=== PATIENT | male | born 1945 | race Asian ===

== ENCOUNTER 2017-05-21 11:51 | Observation (INO) | payer MEDICARE, OTHER ==
[2017-05-21] MEDS: morphine 4 MG/ML VIAL IV (13:05)
[2017-05-21] MEDS: ONDANSETRON 4 MG INJ IV (13:06)
[2017-05-21] MEDS: NITROGLYCERIN 2% 1 GM OINT PKT TD (13:08)
[2017-05-21] MEDS: ASPIRIN 325 MG TAB PO (13:08)
[2017-05-21 13:18] LABS: ADD MAN DIFF? NO
[2017-05-21 13:21] LABS: WHITE BLOOD COUNT 6.4 10^3/ul (4.8-10.8)
[2017-05-21 13:21] LABS: BASOPHILS % 0.5 % (0.0-2.0); EOSINOPHILS % 0.6 % (0.0-7.0); HEMATOCRIT 42.8 % (42.0-52.0); HEMOGLOBIN 14.9 g/dl (14.0-18.0); LYMPHOCYTES # 1.8 10^3/ul (0.8-2.9); LYMPHOCYTES % 28.7 % (15.0-51.0); MEAN CORPUSCULAR HEMOGLOBIN 29.5 pg (29.0-33.0); MEAN CORPUSCULAR HGB CONC 34.8 g/dl (32.0-37.0); MEAN CORPUSCULAR VOLUME 84.8 fl (82.0-101.0); MEAN PLATELET VOLUME 10.2 fl (7.4-10.4); MONOCYTE # 0.5 10^3/ul (0.3-0.9); MONOCYTES % 7.6 % (0.0-11.0); NEUTROPHILS % 62.1 % (39.0-77.0); PLATELET COUNT 213 10^3/UL (140-415); RED BLOOD COUNT 5.05 10^6/ul (4.70-6.10); RED CELL DISTRIBUTION WIDTH 13.4 % (11.5-14.5)
[2017-05-21 13:40] LABS: INR 0.99; PROTIME 13.2 Sec (11.9-14.9)
[2017-05-21 13:41] LABS: PARTIAL THROMBOPLASTIN TIME 27.5 Sec (25.0-35.0)
[2017-05-21 13:43] LABS: ANION GAP 14 (8-16); BLOOD UREA NITROGEN 25 mg/dl (7-20); CALCIUM 9.8 mg/dl (8.4-10.2); CARBON DIOXIDE 20 mmol/L (21-31); CHLORIDE 107 mmol/L (97-110); CREATININE 0.74 mg/dl (0.61-1.24); GLUCOSE 150 mg/dl (70-220); POTASSIUM 4.3 mmol/L (3.5-5.1); SODIUM 137 mmol/L (135-144)
[2017-05-21 13:57] LABS: TROPONIN-I < 0.012 ng/ml (0.00-0.12)
[2017-05-21] MEDS ORDERED: ONDANSETRON 4 MG INJ IV (16:00)
[2017-05-21] MEDS: SOD CHLORIDE 0.9% 1,000 ML IV (16:13)
[2017-05-21 17:59] LABS: HEMOGLOBIN A1C 7.7 % (0-5.9)
[2017-05-21] MEDS ORDERED: GLUCAGON 1 MG INJ IM (19:00)
[2017-05-21] MEDS ORDERED: GLUCOSE GEL 15 GRAM TUBE BUCCAL (19:00)
[2017-05-21] MEDS ORDERED: DEXTROSE 50% 50 ML SYRINGE IV ×2 (19:00)
[2017-05-21] MEDS ORDERED: GLUCOSE GEL 15 GRAM TUBE PO ×2 (19:00)
[2017-05-21] MEDS: FAMOTIDINE 20 MG TAB PO (22:46)
[2017-05-21] MEDS: RANOLAZINE (SR) 500 MG TAB PO (22:46)
[2017-05-21] MEDS: ATORVASTATIN 40 MG TAB PO (22:46)
[2017-05-21] MEDS: INSULIN ASPART [NOVOLOG] 3 ML PEN SC (22:50)
[2017-05-21 22:54] LABS: CREATINE KINASE 38 IU/L (23-200)
[2017-05-21 23:07] LABS: CK INDEX 1.9
[2017-05-21 23:15] LABS: CK-MB 0.72 ng/ml (0.0-2.4); TROPONIN-I < 0.012 ng/ml (0.00-0.12)
[2017-05-22] MEDS: ACCU-CHEK XX (02:00)
[2017-05-22] MEDS: ACETAMINOPHEN 325 MG TAB PO (04:53)
[2017-05-22 05:41] LABS: ADD MAN DIFF? NO
[2017-05-22 06:06] LABS: BASOPHILS % 0.6 % (0.0-2.0); EOSINOPHILS # 0.1 10^3/ul (0.0-0.5); EOSINOPHILS % 2.4 % (0.0-7.0); HEMATOCRIT 37.6 % (42.0-52.0); LYMPHOCYTES # 1.6 10^3/ul (0.8-2.9); LYMPHOCYTES % 46.1 % (15.0-51.0); MEAN CORPUSCULAR HEMOGLOBIN 29.6 pg (29.0-33.0); MEAN CORPUSCULAR HGB CONC 34.6 g/dl (32.0-37.0); MEAN CORPUSCULAR VOLUME 85.6 fl (82.0-101.0); MEAN PLATELET VOLUME 10.5 fl (7.4-10.4); MONOCYTE # 0.3 10^3/ul (0.3-0.9); MONOCYTES % 9.2 % (0.0-11.0); NEUTROPHIL # 1.4 10^3/ul (1.6-7.5); NEUTROPHILS % 41.4 % (39.0-77.0); PLATELET COUNT 172 10^3/UL (140-415); RED BLOOD COUNT 4.39 10^6/ul (4.70-6.10); RED CELL DISTRIBUTION WIDTH 13.5 % (11.5-14.5)
[2017-05-22 06:06] LABS: WHITE BLOOD COUNT 3.4 10^3/ul (4.8-10.8)
[2017-05-22 06:20] LABS: ALANINE AMINOTRANSFERASE 29 IU/L (13-69); ALBUMIN 3.4 g/dl (3.3-4.9); ALBUMIN/GLOBULIN RATIO 1.25; ALKALINE PHOSPHATASE 69 IU/L (42-121); ANION GAP 13 (8-16); ASPARTATE AMINO TRANSFERASE 17 IU/L (15-46); BILIRUBIN,INDIRECT 0.3 mg/dl (0-1.1); BILIRUBIN,TOTAL 0.3 mg/dl (0.2-1.3); BLOOD UREA NITROGEN 26 mg/dl (7-20); CALCIUM 9.1 mg/dl (8.4-10.2); CARBON DIOXIDE 22 mmol/L (21-31); CHLORIDE 108 mmol/L (97-110); CHOL/HDL RATIO 3.6 RATIO; CHOLESTEROL 110 mg/dl (100-200); CREATININE 0.68 mg/dl (0.61-1.24); GLUCOSE 164 mg/dl (70-220); HDL CHOLESTEROL 30 mg/dl (31-75); LDL CHOLESTEROL,CALCULATED 58 mg/dl; POTASSIUM 4.2 mmol/L (3.5-5.1); SODIUM 139 mmol/L (135-144); TOTAL PROTEIN 6.1 g/dl (6.1-8.1); TRIGLYCERIDES 112 mg/dl (0-149)
[2017-05-22 06:23] LABS: B-TYPE NATRIURETIC PEPTIDE 69 PG/ML (0-125)
[2017-05-22 06:29] LABS: FREE T4 (FREE THYROXINE) 0.86 ng/dl (0.78-2.44)
[2017-05-22 06:43] LABS: CREATINE KINASE 34 IU/L (23-200)
[2017-05-22 06:55] LABS: CK-MB 0.68 ng/ml (0.0-2.4); TROPONIN-I < 0.012 ng/ml (0.00-0.12)
[2017-05-22 07:47] LABS: MAGNESIUM 1.8 mg/dl (1.7-2.5)
[2017-05-22] MEDS: REGADENOSON 0.4 MG/5 ML SYG (08:53)
[2017-05-22] MEDS: INSULIN ASPART [NOVOLOG] 3 ML PEN SC ×4 (10:18→21:00)
[2017-05-22] MEDS: RANOLAZINE (SR) 500 MG TAB PO ×2 (10:21→21:30)
[2017-05-22] MEDS: LINAGLIPTIN 5 MG TABLET PO (10:22)
[2017-05-22] MEDS: CLOPIDOGREL 75 MG TAB PO (10:23)
[2017-05-22] MEDS: VALSARTAN 80 MG TAB PO (10:24)
[2017-05-22] MEDS: METOPROLOL (XL) 25 MG TAB PO (10:25)
[2017-05-22] MEDS: DUTASTERIDE 0.5 MG CAP PO (10:28)
[2017-05-22] MEDS: FAMOTIDINE 20 MG TAB PO ×2 (10:28→21:30)
[2017-05-22] MEDS: ATORVASTATIN 40 MG TAB PO (21:30)
[2017-05-23] MEDS: ACCU-CHEK XX (01:42)
[2017-05-23] MEDS: INSULIN ASPART [NOVOLOG] 3 ML PEN SC (07:48)
[2017-05-23] MEDS: RANOLAZINE (SR) 500 MG TAB PO (09:58)
[2017-05-23] MEDS: CLOPIDOGREL 75 MG TAB PO (09:59)
[2017-05-23] MEDS: DUTASTERIDE 0.5 MG CAP PO (09:59)
[2017-05-23] MEDS: VALSARTAN 80 MG TAB PO (09:59)
[2017-05-23] MEDS: FAMOTIDINE 20 MG TAB PO (09:59)
[2017-05-23] MEDS: LINAGLIPTIN 5 MG TABLET PO (09:59)
[2017-05-23] MEDS: METOPROLOL (XL) 25 MG TAB PO (10:00)
== END 2017-05-23 11:00 | disposition home or self-care (01) ==
LOC: E/R 11:51 → MS3 15:38
DX: R07.9 Chest pain, unspecified (principal); I10 Essential (primary) hypertension; E11.9 Type 2 diabetes mellitus without complications; I25.10 Atherosclerotic heart disease of native coronary artery without angina pectoris; E78.5 Hyperlipidemia, unspecified; N40.0 Benign prostatic hyperplasia without lower urinary tract symptoms; Z82.49 Family history of ischemic heart disease and other diseases of the circulatory system; I25.2 Old myocardial infarction; Z79.4 Long term (current) use of insulin
CPT/HCPCS: 71045; 78452; 80048; 80053; 80061; 82550; 82553; 82962; 83036; 83735; 83880; 84439; 84443; 84484; 85025; 85610; 85730; 93005; 93017

== ENCOUNTER 2017-12-04 10:08 | Inpatient (IN) | payer MEDICARE, OTHER ==
[2017-12-04] MEDS: morphine 2 MG INJ IV ×2 (12:12→15:51)
[2017-12-04] MEDS: ONDANSETRON 4 MG INJ IV ×2 (12:12→15:50)
[2017-12-04 12:21] LABS: ADD MAN DIFF? NO
[2017-12-04 12:32] LABS: WHITE BLOOD COUNT 5.5 10^3/ul (4.8-10.8)
[2017-12-04 12:32] LABS: BASOPHILS % 0.4 % (0.0-2.0); EOSINOPHILS # 0.1 10^3/ul (0.0-0.5); EOSINOPHILS % 1.6 % (0.0-7.0); HEMATOCRIT 42.3 % (42.0-52.0); HEMOGLOBIN 14.4 g/dl (14.0-18.0); LYMPHOCYTES # 1.6 10^3/ul (0.8-2.9); LYMPHOCYTES % 29.2 % (15.0-51.0); MEAN CORPUSCULAR HEMOGLOBIN 30.1 pg (29.0-33.0); MEAN CORPUSCULAR VOLUME 88.5 fl (82.0-101.0); MEAN PLATELET VOLUME 10.3 fl (7.4-10.4); MONOCYTE # 0.7 10^3/ul (0.3-0.9); NEUTROPHIL # 3.1 10^3/ul (1.6-7.5); NEUTROPHILS % 56.4 % (39.0-77.0); PLATELET COUNT 170 10^3/UL (140-415); RED BLOOD COUNT 4.78 10^6/ul (4.70-6.10); RED CELL DISTRIBUTION WIDTH 12.8 % (11.5-14.5)
[2017-12-04 12:33] LABS: ADD UMIC NO; UR ASCORBIC ACID NEGATIVE (NEGATIVE); UR BILIRUBIN (Dip) NEGATIVE (NEGATIVE); UR BLOOD (Dip) NEGATIVE (NEGATIVE); UR CLARITY CLEAR (CLEAR); UR COLOR YELLOW (YELLOW); UR GLUCOSE (Dip) 3+ mg/dL (NEGATIVE); UR KETONES (Dip) NEGATIVE (NEGATIVE); UR LEUKOCYTE ESTERASE (Dip) NEGATIVE Leu/ul (NEGATIVE); UR NITRITE (Dip) NEGATIVE (NEGATIVE); UR SPECIFIC GRAVITY (Dip) 1.027 (1.003-1.030); UR TOTAL PROTEIN (Dip) NEGATIVE (NEGATIVE); UR UROBILINOGEN (Dip) NEGATIVE (NEGATIVE)
[2017-12-04 12:58] LABS: ALANINE AMINOTRANSFERASE 24 IU/L (13-69); ALBUMIN 4.3 g/dl (3.3-4.9); ALBUMIN/GLOBULIN RATIO 1.34; ALKALINE PHOSPHATASE 88 IU/L (42-121); ANION GAP 15 (8-16); ASPARTATE AMINO TRANSFERASE 25 IU/L (15-46); BILIRUBIN,INDIRECT 0.5 mg/dl (0-1.1); BILIRUBIN,TOTAL 0.5 mg/dl (0.2-1.3); BLOOD UREA NITROGEN 17 mg/dl (7-20); CALCIUM 9.6 mg/dl (8.4-10.2); CARBON DIOXIDE 23 mmol/L (21-31); CHLORIDE 104 mmol/L (97-110); CREATINE KINASE 94 IU/L (23-200); CREATININE 0.63 mg/dl (0.61-1.24); GLUCOSE 141 mg/dl (70-220); POTASSIUM 4.5 mmol/L (3.5-5.1); SODIUM 137 mmol/L (135-144); TOTAL PROTEIN 7.5 g/dl (6.1-8.1)
[2017-12-04 13:11] LABS: B-TYPE NATRIURETIC PEPTIDE 144 PG/ML (0-125); CK INDEX 1.3; CK-MB 1.23 ng/ml (0.0-2.4); TROPONIN-I < 0.012 ng/ml (0.000-0.120)
[2017-12-04 13:14] LABS: INR 1.05; PROTIME 13.8 Sec (11.9-14.9); PT RATIO 1.1
[2017-12-04 13:15] LABS: PARTIAL THROMBOPLASTIN TIME 27.9 Sec (25.0-35.0)
[2017-12-04] MEDS: PIPER-TAZO 3.375 GM IV (PMX) 100 ML IVPB ×2 (15:50→22:09)
[2017-12-04] MEDS ORDERED: ONDANSETRON 4 MG INJ IV ×2 (16:00→16:30)
[2017-12-04] MEDS ORDERED: ACETAMINOPHEN 325 MG TAB PO (16:00)
[2017-12-04] MEDS: VANCOMYCIN 1 GM (PMX) 250 ML IVPB (16:20)
[2017-12-04] MEDS ORDERED: GLUCOSE GEL 15 GRAM TUBE BUCCAL (18:30)
[2017-12-04] MEDS ORDERED: GLUCOSE GEL 15 GRAM TUBE PO ×2 (18:30)
[2017-12-04] MEDS ORDERED: DEXTROSE 50% 50 ML SYRINGE IV ×2 (18:30)
[2017-12-04] MEDS ORDERED: GLUCAGON 1 MG INJ IM (18:30)
[2017-12-04 18:52] LABS: CREATINE KINASE 81 IU/L (23-200)
[2017-12-04 19:05] LABS: CK INDEX 1.1; CK-MB 0.91 ng/ml (0.0-2.4); TROPONIN-I < 0.012 ng/ml (0.000-0.120)
[2017-12-04] MEDS: ACETAMINOPHEN 325 MG TAB PO (20:10)
[2017-12-04] MEDS: INSULIN ASPART [NOVOLOG] 3 ML PEN SC (21:00)
[2017-12-04] MEDS: ACCU-CHEK XX (21:00)
[2017-12-04] MEDS: ATORVASTATIN 40 MG TAB PO (22:08)
[2017-12-04] MEDS: RANOLAZINE (SR) 500 MG TAB PO (22:08)
[2017-12-05] MEDS: ACETAMINOPHEN 325 MG TAB PO (00:40)
[2017-12-05 01:04] LABS: CREATINE KINASE 73 IU/L (23-200)
[2017-12-05 01:18] LABS: CK INDEX 1.1; CK-MB 0.81 ng/ml (0.0-2.4); TROPONIN-I < 0.012 ng/ml (0.000-0.120)
[2017-12-05] MEDS: ACCU-CHEK XX ×5 (02:00→21:21)
[2017-12-05 05:34] LABS: ADD MAN DIFF? NO
[2017-12-05 05:44] LABS: WHITE BLOOD COUNT 4.4 10^3/ul (4.8-10.8)
[2017-12-05 05:44] LABS: BASOPHILS % 0.7 % (0.0-2.0); EOSINOPHILS # 0.1 10^3/ul (0.0-0.5); EOSINOPHILS % 2.3 % (0.0-7.0); HEMATOCRIT 41.4 % (42.0-52.0); HEMOGLOBIN 13.9 g/dl (14.0-18.0); LYMPHOCYTES # 1.5 10^3/ul (0.8-2.9); LYMPHOCYTES % 34.6 % (15.0-51.0); MEAN CORPUSCULAR HEMOGLOBIN 29.8 pg (29.0-33.0); MEAN CORPUSCULAR HGB CONC 33.6 g/dl (32.0-37.0); MEAN CORPUSCULAR VOLUME 88.8 fl (82.0-101.0); MEAN PLATELET VOLUME 10.4 fl (7.4-10.4); MONOCYTE # 0.5 10^3/ul (0.3-0.9); MONOCYTES % 11.8 % (0.0-11.0); NEUTROPHIL # 2.2 10^3/ul (1.6-7.5); NEUTROPHILS % 50.4 % (39.0-77.0); PLATELET COUNT 150 10^3/UL (140-415); RED BLOOD COUNT 4.66 10^6/ul (4.70-6.10); RED CELL DISTRIBUTION WIDTH 13.1 % (11.5-14.5)
[2017-12-05 06:01] LABS: ANION GAP 9 (8-16); BLOOD UREA NITROGEN 18 mg/dl (7-20); CALCIUM 9.1 mg/dl (8.4-10.2); CARBON DIOXIDE 32 mmol/L (21-31); CHLORIDE 102 mmol/L (97-110); CREATININE 0.74 mg/dl (0.61-1.24); GLUCOSE 133 mg/dl (70-220); MAGNESIUM 2.1 mg/dl (1.7-2.5); PHOSPHORUS 4.6 mg/dl (2.5-4.9); POTASSIUM 4.1 mmol/L (3.5-5.1); SODIUM 139 mmol/L (135-144)
[2017-12-05] MEDS: PIPER-TAZO 3.375 GM IV (PMX) 100 ML IVPB ×3 (06:20→21:22)
[2017-12-05] MEDS ORDERED: ACETAMINOPHEN 325 MG TAB PO (07:30)
[2017-12-05] MEDS: INSULIN ASPART [NOVOLOG] 3 ML PEN SC ×4 (07:57→21:00)
[2017-12-05] MEDS: CLOPIDOGREL 75 MG TAB PO (08:05)
[2017-12-05] MEDS: LIDOCAINE 5% PATCH TRANSDERM (08:05)
[2017-12-05] MEDS: METOPROLOL (XL) 25 MG TAB PO (08:06)
[2017-12-05] MEDS: LINAGLIPTIN 5 MG TABLET PO (08:06)
[2017-12-05] MEDS: FAMOTIDINE 20 MG TAB PO (08:06)
[2017-12-05] MEDS: DUTASTERIDE 0.5 MG CAP PO (08:06)
[2017-12-05] MEDS: RANOLAZINE (SR) 500 MG TAB PO ×2 (08:06→20:11)
[2017-12-05] MEDS: HYDROCODONE/APAP (5/325) TAB PO ×2 (14:56→20:11)
[2017-12-05] MEDS: CEFTRIAXONE 1 GM/50 ML (PMX) 50 ML IVPB (15:14)
[2017-12-05] MEDS: NYSTATIN SUSP 5 ML CUP PO ×2 (17:43→20:10)
[2017-12-05] MEDS: ATORVASTATIN 40 MG TAB PO (20:10)
[2017-12-06] MEDS: HYDROCODONE/APAP (5/325) TAB PO ×3 (00:26→11:53)
[2017-12-06] MEDS: ACCU-CHEK XX ×5 (02:00→21:00)
[2017-12-06] MEDS: PIPER-TAZO 3.375 GM IV (PMX) 100 ML IVPB (05:07)
[2017-12-06] MEDS: INSULIN ASPART [NOVOLOG] 3 ML PEN SC ×4 (07:30→20:32)
[2017-12-06] MEDS: CLOPIDOGREL 75 MG TAB PO (08:27)
[2017-12-06] MEDS: NYSTATIN SUSP 5 ML CUP PO ×4 (08:27→20:32)
[2017-12-06] MEDS: LIDOCAINE 5% PATCH TRANSDERM (08:27)
[2017-12-06] MEDS: DUTASTERIDE 0.5 MG CAP PO (08:27)
[2017-12-06] MEDS: RANOLAZINE (SR) 500 MG TAB PO ×2 (08:27→20:32)
[2017-12-06] MEDS: FAMOTIDINE 20 MG TAB PO (08:29)
[2017-12-06] MEDS: METOPROLOL (XL) 25 MG TAB PO (08:29)
[2017-12-06] MEDS: LINAGLIPTIN 5 MG TABLET PO (08:29)
[2017-12-06] MEDS: CEFTRIAXONE 1 GM/50 ML (PMX) 50 ML IVPB (14:16)
[2017-12-06] MEDS: MAGNESIUM HYDROXIDE 30ML CUP PO (15:18)
[2017-12-06] MEDS: BISACODYL (EC) 5 MG TAB PO (15:18)
[2017-12-06] MEDS: POLYETHYLENE GLYCOL 17 GM PACKET PO (17:16)
[2017-12-06] MEDS: ATORVASTATIN 40 MG TAB PO (20:32)
[2017-12-07] MEDS: ACCU-CHEK XX ×5 (01:58→21:00)
[2017-12-07 06:14] LABS: ADD MAN DIFF? NO
[2017-12-07 06:30] LABS: BASOPHILS % 0.5 % (0.0-2.0); EOSINOPHILS # 0.1 10^3/ul (0.0-0.5); EOSINOPHILS % 2.6 % (0.0-7.0); HEMATOCRIT 42.3 % (42.0-52.0); LYMPHOCYTES # 1.4 10^3/ul (0.8-2.9); LYMPHOCYTES % 36.9 % (15.0-51.0); MEAN CORPUSCULAR HEMOGLOBIN 29.9 pg (29.0-33.0); MEAN CORPUSCULAR HGB CONC 33.1 g/dl (32.0-37.0); MEAN CORPUSCULAR VOLUME 90.2 fl (82.0-101.0); MEAN PLATELET VOLUME 10.6 fl (7.4-10.4); MONOCYTE # 0.5 10^3/ul (0.3-0.9); MONOCYTES % 12.4 % (0.0-11.0); NEUTROPHIL # 1.8 10^3/ul (1.6-7.5); NEUTROPHILS % 47.1 % (39.0-77.0); PLATELET COUNT 162 10^3/UL (140-415); RED BLOOD COUNT 4.69 10^6/ul (4.70-6.10); RED CELL DISTRIBUTION WIDTH 12.7 % (11.5-14.5)
[2017-12-07 06:30] LABS: WHITE BLOOD COUNT 3.9 10^3/ul (4.8-10.8)
[2017-12-07 06:52] LABS: ANION GAP 15 (8-16); BLOOD UREA NITROGEN 22 mg/dl (7-20); CALCIUM 8.9 mg/dl (8.4-10.2); CARBON DIOXIDE 28 mmol/L (21-31); CHLORIDE 105 mmol/L (97-110); CREATININE 0.77 mg/dl (0.61-1.24); GLUCOSE 147 mg/dl (70-220); MAGNESIUM 2.3 mg/dl (1.7-2.5); POTASSIUM 3.9 mmol/L (3.5-5.1); SODIUM 144 mmol/L (135-144)
[2017-12-07] MEDS: HYDROCODONE/APAP (5/325) TAB PO ×3 (07:40→21:34)
[2017-12-07] MEDS: INSULIN ASPART [NOVOLOG] 3 ML PEN SC ×4 (07:44→21:27)
[2017-12-07] MEDS: POLYETHYLENE GLYCOL 17 GM PACKET PO (09:00)
[2017-12-07] MEDS: FAMOTIDINE 20 MG TAB PO (09:01)
[2017-12-07] MEDS: CLOPIDOGREL 75 MG TAB PO (09:01)
[2017-12-07] MEDS: LINAGLIPTIN 5 MG TABLET PO (09:01)
[2017-12-07] MEDS: METOPROLOL (XL) 25 MG TAB PO (09:02)
[2017-12-07] MEDS: DUTASTERIDE 0.5 MG CAP PO (09:02)
[2017-12-07] MEDS: RANOLAZINE (SR) 500 MG TAB PO ×2 (09:02→20:56)
[2017-12-07] MEDS: NYSTATIN SUSP 5 ML CUP PO ×4 (09:03→20:56)
[2017-12-07] MEDS: LIDOCAINE 5% PATCH TRANSDERM (09:03)
[2017-12-07] MEDS: ENOXAPARIN 40 MG/0.4 ML SYG SC (09:15)
[2017-12-07] MEDS: CEFTRIAXONE 1 GM/50 ML (PMX) 50 ML IVPB (15:20)
[2017-12-07] MEDS: ATORVASTATIN 40 MG TAB PO (20:56)
[2017-12-08] MEDS: ACCU-CHEK XX ×5 (02:43→20:37)
[2017-12-08] MEDS: INSULIN ASPART [NOVOLOG] 3 ML PEN SC ×4 (07:30→20:37)
[2017-12-08] MEDS: LINAGLIPTIN 5 MG TABLET PO (07:43)
[2017-12-08] MEDS: NYSTATIN SUSP 5 ML CUP PO ×4 (08:39→20:31)
[2017-12-08] MEDS: LIDOCAINE 5% PATCH TRANSDERM (08:39)
[2017-12-08] MEDS: DUTASTERIDE 0.5 MG CAP PO (08:40)
[2017-12-08] MEDS: RANOLAZINE (SR) 500 MG TAB PO ×2 (08:40→20:31)
[2017-12-08] MEDS: FAMOTIDINE 20 MG TAB PO (08:40)
[2017-12-08] MEDS: METOPROLOL (XL) 25 MG TAB PO (08:40)
[2017-12-08] MEDS: CLOPIDOGREL 75 MG TAB PO (08:40)
[2017-12-08] MEDS: ENOXAPARIN 40 MG/0.4 ML SYG SC (08:49)
[2017-12-08] MEDS: HYDROCODONE/APAP (5/325) TAB PO ×2 (08:50→19:28)
[2017-12-08] MEDS: POLYETHYLENE GLYCOL 17 GM PACKET PO (08:51)
[2017-12-08] MEDS: CEFTRIAXONE 1 GM/50 ML (PMX) 50 ML IVPB (15:06)
[2017-12-08] MEDS: ATORVASTATIN 40 MG TAB PO (20:31)
[2017-12-09] MEDS: HYDROCODONE/APAP (5/325) TAB PO ×3 (01:34→16:00)
[2017-12-09] MEDS: ACCU-CHEK XX ×3 (01:54→12:10)
[2017-12-09] MEDS: INSULIN ASPART [NOVOLOG] 3 ML PEN SC ×2 (08:23→12:00)
[2017-12-09] MEDS: LINAGLIPTIN 5 MG TABLET PO (08:52)
[2017-12-09] MEDS: METOPROLOL (XL) 25 MG TAB PO (08:54)
[2017-12-09] MEDS: DUTASTERIDE 0.5 MG CAP PO (08:54)
[2017-12-09] MEDS: NYSTATIN SUSP 5 ML CUP PO (08:54)
[2017-12-09] MEDS: FAMOTIDINE 20 MG TAB PO (08:54)
[2017-12-09] MEDS: CLOPIDOGREL 75 MG TAB PO (08:54)
[2017-12-09] MEDS: LIDOCAINE 5% PATCH TRANSDERM (08:55)
[2017-12-09] MEDS: ENOXAPARIN 40 MG/0.4 ML SYG SC (08:56)
[2017-12-09] MEDS: RANOLAZINE (SR) 500 MG TAB PO (08:58)
[2017-12-09] MEDS: POLYETHYLENE GLYCOL 17 GM PACKET PO (09:00)
== END 2017-12-09 16:53 | disposition home or self-care (01) | DRG 183 ==
LOC: E/R 10:08 → 6WM 15:40
DX: S22.42XA Multiple fractures of ribs, left side, initial encounter for closed fracture (principal); J18.9 Pneumonia, unspecified organism; J21.9 Acute bronchiolitis, unspecified; B37.0 Candidal stomatitis; I10 Essential (primary) hypertension; W06.XXXA Fall from bed, initial encounter; E11.9 Type 2 diabetes mellitus without complications; E78.5 Hyperlipidemia, unspecified; N40.0 Benign prostatic hyperplasia without lower urinary tract symptoms; Z95.5 Presence of coronary angioplasty implant and graft; D64.9 Anemia, unspecified
CPT/HCPCS: 36415; 71250; 80048; 80053; 81003; 82550; 82553; 82962; 83735; 83880; 84100; 84484; 85025; 85610; 85730; 87040; 93005; 96374; 96375; 97116; 97162; 99285-25

== ENCOUNTER 2018-10-03 21:51 | Inpatient (IN) | payer MEDICARE, OTHER ==
[2018-10-03 22:21] LABS: ADD MAN DIFF? NO
[2018-10-03 22:26] LABS: BASOPHILS % 0.3 % (0.0-2.0); EOSINOPHILS # 0.1 10^3/ul (0.0-0.5); EOSINOPHILS % 1.2 % (0.0-7.0); HEMATOCRIT 43.4 % (42.0-52.0); HEMOGLOBIN 14.6 g/dl (14.0-18.0); LYMPHOCYTES # 1.9 10^3/ul (0.8-2.9); LYMPHOCYTES % 31.6 % (15.0-51.0); MEAN CORPUSCULAR HEMOGLOBIN 29.2 pg (29.0-33.0); MEAN CORPUSCULAR HGB CONC 33.6 g/dl (32.0-37.0); MEAN CORPUSCULAR VOLUME 86.8 fl (82.0-101.0); MEAN PLATELET VOLUME 9.9 fl (7.4-10.4); MONOCYTE # 0.6 10^3/ul (0.3-0.9); MONOCYTES % 10.9 % (0.0-11.0); NEUTROPHIL # 3.3 10^3/ul (1.6-7.5); NEUTROPHILS % 55.7 % (39.0-77.0); PLATELET COUNT 179 10^3/UL (140-415); RED CELL DISTRIBUTION WIDTH 13.2 % (11.5-14.5)
[2018-10-03 22:26] LABS: WHITE BLOOD COUNT 5.9 10^3/ul (4.8-10.8)
[2018-10-03] MEDS: ASPIRIN 325 MG TAB PO (22:43)
[2018-10-03 22:48] LABS: INR 1.01; PROTIME 13.4 Sec (11.9-14.9)
[2018-10-03 23:39] LABS: ALANINE AMINOTRANSFERASE 20 IU/L (13-69); ALBUMIN 4.5 g/dl (3.3-4.9); ALBUMIN/GLOBULIN RATIO 1.45; ALKALINE PHOSPHATASE 87 IU/L (42-121); ANION GAP 14 (5-13); ASPARTATE AMINO TRANSFERASE 24 IU/L (15-46); BILIRUBIN,INDIRECT 0.6 mg/dl (0-1.1); BILIRUBIN,TOTAL 0.6 mg/dl (0.2-1.3); BLOOD UREA NITROGEN 14 mg/dl (7-20); CALCIUM 9.9 mg/dl (8.4-10.2); CARBON DIOXIDE 23 mmol/L (21-31); CHLORIDE 102 mmol/L (97-110); CREATININE 0.79 mg/dl (0.61-1.24); GLUCOSE 151 mg/dl (70-220); POTASSIUM 4.2 mmol/L (3.5-5.1); SODIUM 139 mmol/L (135-144); TOTAL PROTEIN 7.6 g/dl (6.1-8.1)
[2018-10-03 23:51] LABS: B-TYPE NATRIURETIC PEPTIDE 158 PG/ML (0-125); TROPONIN-I < 0.012 ng/ml (0.000-0.120)
[2018-10-04] MEDS ORDERED: ONDANSETRON 4 MG INJ IV (01:00)
[2018-10-04] MEDS ORDERED: ACETAMINOPHEN 325 MG TAB PO (01:00)
[2018-10-04] MEDS: HEPARIN 1000 UNITS/ML 10 ML INJ IV (01:12)
[2018-10-04] MEDS: HEPARIN 25000 UNITS/250 ML 250 ML IV (01:15)
[2018-10-04 06:15] LABS: ADD MAN DIFF? NO
[2018-10-04 06:22] LABS: BASOPHILS % 0.5 % (0.0-2.0); EOSINOPHILS # 0.1 10^3/ul (0.0-0.5); EOSINOPHILS % 2.1 % (0.0-7.0); HEMATOCRIT 40.1 % (42.0-52.0); HEMOGLOBIN 13.6 g/dl (14.0-18.0); LYMPHOCYTES # 1.9 10^3/ul (0.8-2.9); LYMPHOCYTES % 50.7 % (15.0-51.0); MEAN CORPUSCULAR HEMOGLOBIN 29.7 pg (29.0-33.0); MEAN CORPUSCULAR HGB CONC 33.9 g/dl (32.0-37.0); MEAN CORPUSCULAR VOLUME 87.6 fl (82.0-101.0); MEAN PLATELET VOLUME 10.2 fl (7.4-10.4); MONOCYTE # 0.4 10^3/ul (0.3-0.9); MONOCYTES % 11.5 % (0.0-11.0); NEUTROPHIL # 1.3 10^3/ul (1.6-7.5); NEUTROPHILS % 34.9 % (39.0-77.0); PLATELET COUNT 159 10^3/UL (140-415); RED BLOOD COUNT 4.58 10^6/ul (4.70-6.10); RED CELL DISTRIBUTION WIDTH 13.3 % (11.5-14.5)
[2018-10-04 06:22] LABS: WHITE BLOOD COUNT 3.8 10^3/ul (4.8-10.8)
[2018-10-04 06:50] LABS: ANION GAP 8 (5-13); BLOOD UREA NITROGEN 16 mg/dl (7-20); CALCIUM 9.4 mg/dl (8.4-10.2); CARBON DIOXIDE 28 mmol/L (21-31); CHLORIDE 105 mmol/L (97-110); CREATININE 0.73 mg/dl (0.61-1.24); GLUCOSE 136 mg/dl (70-220); SODIUM 141 mmol/L (135-144)
[2018-10-04 06:55] LABS: CREATINE KINASE 42 IU/L (23-200)
[2018-10-04 06:57] LABS: CK INDEX 2.2; CK-MB 0.94 ng/ml (0.0-2.4); TROPONIN-I < 0.012 ng/ml (0.000-0.120)
[2018-10-04] MEDS: RANOLAZINE (SR) 500 MG TAB PO ×2 (10:06→21:04)
[2018-10-04] MEDS: FAMOTIDINE 20 MG TAB PO (10:07)
[2018-10-04] MEDS: CLOPIDOGREL 75 MG TAB PO (10:07)
[2018-10-04] MEDS: LOSARTAN 50 MG TAB PO (10:07)
[2018-10-04] MEDS: METOPROLOL (XL) 25 MG TAB PO (10:07)
[2018-10-04] MEDS: LINAGLIPTIN 5 MG TABLET PO (10:07)
[2018-10-04] MEDS: ISOSORBIDE MONONITRATE(SR)30 MG TAB PO (10:07)
[2018-10-04 11:14] LABS: CREATINE KINASE 34 IU/L (23-200)
[2018-10-04 11:24] LABS: CK-MB 0.69 ng/ml (0.0-2.4); TROPONIN-I < 0.012 ng/ml (0.000-0.120)
[2018-10-04] MEDS: INSULIN ASPART [NOVOLOG] 3 ML PEN SC ×2 (12:11→16:45)
[2018-10-04 15:59] LABS: HEMOGLOBIN A1C 6.8 % (0-5.9)
[2018-10-04] MEDS: ATORVASTATIN 40 MG TAB PO (21:04)
[2018-10-05] MEDS: ACCU-CHEK XX (02:00)
[2018-10-05 06:22] LABS: ADD MAN DIFF? NO
[2018-10-05 06:28] LABS: BASOPHILS % 0.2 % (0.0-2.0); EOSINOPHILS # 0.1 10^3/ul (0.0-0.5); EOSINOPHILS % 1.6 % (0.0-7.0); HEMATOCRIT 40.9 % (42.0-52.0); HEMOGLOBIN 13.7 g/dl (14.0-18.0); LYMPHOCYTES % 44.2 % (15.0-51.0); MEAN CORPUSCULAR HEMOGLOBIN 29.3 pg (29.0-33.0); MEAN CORPUSCULAR HGB CONC 33.5 g/dl (32.0-37.0); MEAN CORPUSCULAR VOLUME 87.6 fl (82.0-101.0); MEAN PLATELET VOLUME 10.5 fl (7.4-10.4); MONOCYTE # 0.6 10^3/ul (0.3-0.9); MONOCYTES % 12.9 % (0.0-11.0); NEUTROPHIL # 1.8 10^3/ul (1.6-7.5); NEUTROPHILS % 40.7 % (39.0-77.0); PLATELET COUNT 183 10^3/UL (140-415); RED BLOOD COUNT 4.67 10^6/ul (4.70-6.10); RED CELL DISTRIBUTION WIDTH 13.7 % (11.5-14.5)
[2018-10-05 06:28] LABS: WHITE BLOOD COUNT 4.5 10^3/ul (4.8-10.8)
[2018-10-05 06:54] LABS: CREATINE KINASE 26 IU/L (23-200)
[2018-10-05 07:06] LABS: CK INDEX 1.4; CK-MB 0.36 ng/ml (0.0-2.4); TROPONIN-I < 0.012 ng/ml (0.000-0.120)
[2018-10-05 07:11] LABS: B-TYPE NATRIURETIC PEPTIDE 65 PG/ML (0-125)
[2018-10-05 07:16] LABS: ALANINE AMINOTRANSFERASE 17 IU/L (13-69); ALBUMIN 3.9 g/dl (3.3-4.9); ALBUMIN/GLOBULIN RATIO 1.44; ALKALINE PHOSPHATASE 75 IU/L (42-121); ANION GAP 13 (5-13); ASPARTATE AMINO TRANSFERASE 18 IU/L (15-46); BILIRUBIN,INDIRECT 0.5 mg/dl (0-1.1); BILIRUBIN,TOTAL 0.5 mg/dl (0.2-1.3); BLOOD UREA NITROGEN 18 mg/dl (7-20); CALCIUM 9.6 mg/dl (8.4-10.2); CARBON DIOXIDE 26 mmol/L (21-31); CHLORIDE 102 mmol/L (97-110); CHOL/HDL RATIO 2.8 RATIO; CHOLESTEROL 114 mg/dl (100-200); CREATININE 0.71 mg/dl (0.61-1.24); GLUCOSE 125 mg/dl (70-220); HDL CHOLESTEROL 40 mg/dl (31-75); LDL CHOLESTEROL,CALCULATED 50 mg/dl; POTASSIUM 4.2 mmol/L (3.5-5.1); SODIUM 141 mmol/L (135-144); TOTAL PROTEIN 6.6 g/dl (6.1-8.1); TRIGLYCERIDES 122 mg/dl (0-149)
[2018-10-05 07:18] LABS: FREE T4 (FREE THYROXINE) 0.95 ng/dl (0.78-2.44)
[2018-10-05] MEDS: LOSARTAN 50 MG TAB PO (07:55)
[2018-10-05] MEDS: METOPROLOL (XL) 25 MG TAB PO (07:56)
[2018-10-05] MEDS: RANOLAZINE (SR) 500 MG TAB PO ×2 (07:56→21:30)
[2018-10-05] MEDS: FAMOTIDINE 20 MG TAB PO (07:56)
[2018-10-05] MEDS: LINAGLIPTIN 5 MG TABLET PO (07:56)
[2018-10-05] MEDS: CLOPIDOGREL 75 MG TAB PO (07:57)
[2018-10-05] MEDS: ISOSORBIDE MONONITRATE(SR)30 MG TAB PO (07:57)
[2018-10-05] MEDS: INSULIN ASPART [NOVOLOG] 3 ML PEN SC ×3 (08:11→16:58)
[2018-10-05] MEDS ORDERED: NON-FORMULARY/PATIENT OWN MED (Sitagliptin* (Januvia*) 100 MG) PO (09:00)
[2018-10-05] MEDS ORDERED: NON-FORMULARY/PATIENT OWN MED (Valsartan* (Diovan*) 80 MG) PO (09:00)
[2018-10-05] MEDS: DUTASTERIDE 0.5 MG CAP PO (09:57)
[2018-10-05] MEDS: ENOXAPARIN 30 MG/0.3 ML SYG SC (10:00)
[2018-10-05] MEDS: SOD CHLORIDE 0.9% 500 ML IV (14:20)
[2018-10-05] MEDS: ATORVASTATIN 40 MG TAB PO (21:30)
[2018-10-06] MEDS: ACCU-CHEK XX (02:00)
[2018-10-06] MEDS: LINAGLIPTIN 5 MG TABLET PO (07:38)
[2018-10-06] MEDS: INSULIN ASPART [NOVOLOG] 3 ML PEN SC ×5 (07:43→20:28)
[2018-10-06] MEDS: DUTASTERIDE 0.5 MG CAP PO (08:34)
[2018-10-06] MEDS: LOSARTAN 50 MG TAB PO (08:34)
[2018-10-06] MEDS: RANOLAZINE (SR) 500 MG TAB PO ×2 (08:34→20:28)
[2018-10-06] MEDS: FAMOTIDINE 20 MG TAB PO (08:35)
[2018-10-06] MEDS: CLOPIDOGREL 75 MG TAB PO (08:35)
[2018-10-06] MEDS: METOPROLOL (XL) 25 MG TAB PO (08:35)
[2018-10-06] MEDS: ENOXAPARIN 30 MG/0.3 ML SYG SC (08:39)
[2018-10-06] MEDS ORDERED: GLUCOSE GEL 15 GRAM TUBE BUCCAL (14:00)
[2018-10-06] MEDS ORDERED: GLUCAGON 1 MG INJ IM (14:00)
[2018-10-06] MEDS ORDERED: GLUCOSE GEL 15 GRAM TUBE PO ×2 (14:00)
[2018-10-06] MEDS ORDERED: DEXTROSE 50% 50 ML SYRINGE IV ×2 (14:00)
[2018-10-06] MEDS: ATORVASTATIN 40 MG TAB PO (20:28)
[2018-10-07] MEDS: ACCU-CHEK XX (02:00)
[2018-10-07] MEDS: LINAGLIPTIN 5 MG TABLET PO (07:41)
[2018-10-07] MEDS: INSULIN ASPART [NOVOLOG] 3 ML PEN SC ×7 (07:43→21:00)
[2018-10-07] MEDS: LOSARTAN 50 MG TAB PO (08:24)
[2018-10-07] MEDS: METOPROLOL (XL) 25 MG TAB PO (08:25)
[2018-10-07] MEDS: RANOLAZINE (SR) 500 MG TAB PO ×2 (08:26→21:43)
[2018-10-07] MEDS: FAMOTIDINE 20 MG TAB PO (08:26)
[2018-10-07] MEDS: DUTASTERIDE 0.5 MG CAP PO (08:26)
[2018-10-07] MEDS: CLOPIDOGREL 75 MG TAB PO (08:26)
[2018-10-07] MEDS: ENOXAPARIN 30 MG/0.3 ML SYG SC (08:30)
[2018-10-07] MEDS: ALBUTEROL/IPRATROPIUM (NEB) 3 ML AMP HHN ×2 (14:00→19:44)
[2018-10-07] MEDS: ATORVASTATIN 40 MG TAB PO (21:43)
[2018-10-08] MEDS: ALBUTEROL/IPRATROPIUM (NEB) 3 ML AMP HHN ×4 (01:52→19:34)
[2018-10-08] MEDS: ACCU-CHEK XX (02:00)
[2018-10-08] MEDS: INSULIN ASPART [NOVOLOG] 3 ML PEN SC ×7 (07:50→20:58)
[2018-10-08] MEDS: FAMOTIDINE 20 MG TAB PO (08:04)
[2018-10-08] MEDS: CLOPIDOGREL 75 MG TAB PO (08:04)
[2018-10-08] MEDS: LINAGLIPTIN 5 MG TABLET PO (08:05)
[2018-10-08] MEDS: RANOLAZINE (SR) 500 MG TAB PO ×2 (08:05→20:59)
[2018-10-08] MEDS: METOPROLOL (XL) 25 MG TAB PO (08:05)
[2018-10-08] MEDS: DUTASTERIDE 0.5 MG CAP PO (08:05)
[2018-10-08] MEDS: LOSARTAN 50 MG TAB PO (08:06)
[2018-10-08] MEDS: ENOXAPARIN 30 MG/0.3 ML SYG SC (08:17)
[2018-10-08] MEDS: ATORVASTATIN 40 MG TAB PO (20:59)
[2018-10-09] MEDS: ACCU-CHEK XX (02:00)
[2018-10-09] MEDS: ALBUTEROL/IPRATROPIUM (NEB) 3 ML AMP HHN ×4 (02:18→20:17)
[2018-10-09] MEDS: INSULIN ASPART [NOVOLOG] 3 ML PEN SC ×7 (07:51→20:50)
[2018-10-09] MEDS: RANOLAZINE (SR) 500 MG TAB PO ×2 (08:20→20:50)
[2018-10-09] MEDS: FAMOTIDINE 20 MG TAB PO (08:21)
[2018-10-09] MEDS: CLOPIDOGREL 75 MG TAB PO (08:21)
[2018-10-09] MEDS: LINAGLIPTIN 5 MG TABLET PO (08:21)
[2018-10-09] MEDS: DUTASTERIDE 0.5 MG CAP PO (08:21)
[2018-10-09] MEDS: METOPROLOL (XL) 25 MG TAB PO (08:22)
[2018-10-09] MEDS: LOSARTAN 50 MG TAB PO (08:22)
[2018-10-09] MEDS: ENOXAPARIN 30 MG/0.3 ML SYG SC (08:26)
[2018-10-09 15:52] LABS: IMMUNOGLOBULIN A 358 mg/dl (70-400)
[2018-10-09 15:52] LABS: IMMUNOGLOBULIN G 892 mg/dl (700-1600)
[2018-10-09 16:02] LABS: IMMUNOGLOBULIN M < 25 mg/dl (40-230)
[2018-10-09] MEDS: ATORVASTATIN 40 MG TAB PO (20:49)
[2018-10-10] MEDS: ALBUTEROL/IPRATROPIUM (NEB) 3 ML AMP HHN ×4 (01:15→19:48)
[2018-10-10] MEDS: ACCU-CHEK XX (02:00)
[2018-10-10] MEDS: INSULIN ASPART [NOVOLOG] 3 ML PEN SC ×8 (08:15→19:10)
[2018-10-10] MEDS: LOSARTAN 50 MG TAB PO (10:07)
[2018-10-10] MEDS: METOPROLOL (XL) 25 MG TAB PO (10:08)
[2018-10-10] MEDS: DUTASTERIDE 0.5 MG CAP PO (10:08)
[2018-10-10] MEDS: RANOLAZINE (SR) 500 MG TAB PO ×2 (10:08→20:30)
[2018-10-10] MEDS: FAMOTIDINE 20 MG TAB PO (10:08)
[2018-10-10] MEDS: CLOPIDOGREL 75 MG TAB PO (10:08)
[2018-10-10] MEDS: LINAGLIPTIN 5 MG TABLET PO (10:09)
[2018-10-10] MEDS: ENOXAPARIN 30 MG/0.3 ML SYG SC (10:11)
[2018-10-10] MEDS: BISACODYL (EC) 5 MG TAB PO (12:07)
[2018-10-10] MEDS: ATORVASTATIN 40 MG TAB PO (20:30)
[2018-10-10] MEDS: DOCUSATE SODIUM 100 MG CAP PO (20:30)
[2018-10-11] MEDS: ACCU-CHEK XX (01:21)
[2018-10-11] MEDS: ALBUTEROL/IPRATROPIUM (NEB) 3 ML AMP HHN ×4 (02:08→20:00)
[2018-10-11] MEDS: INSULIN ASPART [NOVOLOG] 3 ML PEN SC ×7 (07:36→20:34)
[2018-10-11] MEDS: LOSARTAN 50 MG TAB PO (08:44)
[2018-10-11] MEDS: DUTASTERIDE 0.5 MG CAP PO (08:44)
[2018-10-11] MEDS: METOPROLOL (XL) 25 MG TAB PO (08:45)
[2018-10-11] MEDS: LINAGLIPTIN 5 MG TABLET PO (08:45)
[2018-10-11] MEDS: FAMOTIDINE 20 MG TAB PO (08:45)
[2018-10-11] MEDS: CLOPIDOGREL 75 MG TAB PO (08:45)
[2018-10-11] MEDS: DOCUSATE SODIUM 100 MG CAP PO ×2 (08:45→19:36)
[2018-10-11] MEDS: RANOLAZINE (SR) 500 MG TAB PO ×2 (08:51→19:36)
[2018-10-11] MEDS: ENOXAPARIN 30 MG/0.3 ML SYG SC (08:53)
[2018-10-11 12:06] LABS: IMMUNOGLOBULIN E 45 kU/L (<OR=114)
[2018-10-11] MEDS: ACETAMINOPHEN 325 MG TAB PO ×2 (12:09→23:59)
[2018-10-11 18:19] LABS: ADD MAN DIFF? NO
[2018-10-11 18:20] LABS: BASOPHILS % 0.9 % (0.0-2.0); EOSINOPHILS # 0.1 10^3/ul (0.0-0.5); EOSINOPHILS % 2.3 % (0.0-7.0); HEMATOCRIT 39.2 % (42.0-52.0); HEMOGLOBIN 13.3 g/dl (14.0-18.0); LYMPHOCYTES # 1.5 10^3/ul (0.8-2.9); LYMPHOCYTES % 41.6 % (15.0-51.0); MEAN CORPUSCULAR HEMOGLOBIN 29.9 pg (29.0-33.0); MEAN CORPUSCULAR HGB CONC 33.9 g/dl (32.0-37.0); MEAN CORPUSCULAR VOLUME 88.1 fl (82.0-101.0); MEAN PLATELET VOLUME 10.1 fl (7.4-10.4); MONOCYTE # 0.4 10^3/ul (0.3-0.9); MONOCYTES % 10.8 % (0.0-11.0); NEUTROPHIL # 1.5 10^3/ul (1.6-7.5); NEUTROPHILS % 43.8 % (39.0-77.0); PLATELET COUNT 168 10^3/UL (140-415); RED BLOOD COUNT 4.45 10^6/ul (4.70-6.10)
[2018-10-11 18:20] LABS: WHITE BLOOD COUNT 3.5 10^3/ul (4.8-10.8)
[2018-10-11 18:37] LABS: ANION GAP 7 (5-13); BLOOD UREA NITROGEN 20 mg/dl (7-20); CALCIUM 9.4 mg/dl (8.4-10.2); CARBON DIOXIDE 26 mmol/L (21-31); CHLORIDE 106 mmol/L (97-110); CREATININE 0.66 mg/dl (0.61-1.24); GLUCOSE 199 mg/dl (70-220); POTASSIUM 4.2 mmol/L (3.5-5.1); SODIUM 139 mmol/L (135-144)
[2018-10-11 19:11] LABS: NIL 0.07 IU/mL; QUANTIFERON(R)-TB GOLD NEGATIVE (NEGATIVE); TB-NIL <0.00 IU/mL; TB2-NIL <0.00 IU/mL
[2018-10-11] MEDS: ATORVASTATIN 40 MG TAB PO (19:36)
[2018-10-11 23:48] LABS: TROPONIN-I < 0.012 ng/ml (0.000-0.120)
[2018-10-12] MEDS: ALBUTEROL/IPRATROPIUM (NEB) 3 ML AMP HHN ×5 (01:49→20:19)
[2018-10-12] MEDS: ACCU-CHEK XX ×2 (02:00→22:13)
[2018-10-12 05:50] LABS: ADD MAN DIFF? NO
[2018-10-12 05:56] LABS: WHITE BLOOD COUNT 3.5 10^3/ul (4.8-10.8)
[2018-10-12 05:56] LABS: BASOPHILS % 0.6 % (0.0-2.0); EOSINOPHILS # 0.1 10^3/ul (0.0-0.5); EOSINOPHILS % 2.5 % (0.0-7.0); HEMATOCRIT 40.3 % (42.0-52.0); HEMOGLOBIN 13.6 g/dl (14.0-18.0); LYMPHOCYTES # 1.7 10^3/ul (0.8-2.9); LYMPHOCYTES % 46.7 % (15.0-51.0); MEAN CORPUSCULAR HEMOGLOBIN 29.2 pg (29.0-33.0); MEAN CORPUSCULAR HGB CONC 33.7 g/dl (32.0-37.0); MEAN CORPUSCULAR VOLUME 86.7 fl (82.0-101.0); MEAN PLATELET VOLUME 10.2 fl (7.4-10.4); MONOCYTE # 0.4 10^3/ul (0.3-0.9); MONOCYTES % 11.6 % (0.0-11.0); NEUTROPHIL # 1.3 10^3/ul (1.6-7.5); NEUTROPHILS % 37.8 % (39.0-77.0); PLATELET COUNT 165 10^3/UL (140-415); RED BLOOD COUNT 4.65 10^6/ul (4.70-6.10)
[2018-10-12 06:37] LABS: ANION GAP 9 (5-13); BLOOD UREA NITROGEN 17 mg/dl (7-20); CARBON DIOXIDE 25 mmol/L (21-31); CHLORIDE 107 mmol/L (97-110); CREATININE 0.64 mg/dl (0.61-1.24); GLUCOSE 145 mg/dl (70-220); POTASSIUM 3.9 mmol/L (3.5-5.1); SODIUM 141 mmol/L (135-144)
[2018-10-12 06:43] LABS: TROPONIN-I < 0.012 ng/ml (0.000-0.120)
[2018-10-12] MEDS: INSULIN ASPART [NOVOLOG] 3 ML PEN SC ×7 (07:25→20:49)
[2018-10-12] MEDS: RANOLAZINE (SR) 500 MG TAB PO ×2 (08:10→20:40)
[2018-10-12] MEDS: FAMOTIDINE 20 MG TAB PO (08:10)
[2018-10-12] MEDS: LOSARTAN 50 MG TAB PO (08:10)
[2018-10-12] MEDS: DUTASTERIDE 0.5 MG CAP PO (08:10)
[2018-10-12] MEDS: CLOPIDOGREL 75 MG TAB PO (08:10)
[2018-10-12] MEDS: LINAGLIPTIN 5 MG TABLET PO (08:11)
[2018-10-12] MEDS: DOCUSATE SODIUM 100 MG CAP PO ×2 (08:11→20:40)
[2018-10-12] MEDS: METOPROLOL (XL) 25 MG TAB PO (08:11)
[2018-10-12] MEDS: ENOXAPARIN 30 MG/0.3 ML SYG SC (08:18)
[2018-10-12 11:36] LABS: TROPONIN-I < 0.012 ng/ml (0.000-0.120)
[2018-10-12] MEDS: ATORVASTATIN 40 MG TAB PO (20:40)
[2018-10-13] MEDS: ALBUTEROL/IPRATROPIUM (NEB) 3 ML AMP HHN ×4 (01:55→21:45)
[2018-10-13] MEDS: LINAGLIPTIN 5 MG TABLET PO (09:03)
[2018-10-13] MEDS: DUTASTERIDE 0.5 MG CAP PO (09:03)
[2018-10-13] MEDS: FAMOTIDINE 20 MG TAB PO (09:03)
[2018-10-13] MEDS: DOCUSATE SODIUM 100 MG CAP PO ×2 (09:03→20:35)
[2018-10-13] MEDS: RANOLAZINE (SR) 500 MG TAB PO ×2 (09:04→20:35)
[2018-10-13] MEDS: CLOPIDOGREL 75 MG TAB PO (09:04)
[2018-10-13] MEDS: METOPROLOL (XL) 25 MG TAB PO (09:04)
[2018-10-13] MEDS: LOSARTAN 50 MG TAB PO (09:05)
[2018-10-13] MEDS: INSULIN ASPART [NOVOLOG] 3 ML PEN SC ×7 (09:07→20:36)
[2018-10-13] MEDS: ENOXAPARIN 30 MG/0.3 ML SYG SC (09:08)
[2018-10-13] MEDS: ATORVASTATIN 40 MG TAB PO (20:35)
[2018-10-13] MEDS: ACCU-CHEK XX (20:37)
[2018-10-14] MEDS: ALBUTEROL/IPRATROPIUM (NEB) 3 ML AMP HHN ×3 (02:43→13:52)
[2018-10-14] MEDS: CLOPIDOGREL 75 MG TAB PO (09:05)
[2018-10-14] MEDS: FAMOTIDINE 20 MG TAB PO (09:05)
[2018-10-14] MEDS: DOCUSATE SODIUM 100 MG CAP PO (09:05)
[2018-10-14] MEDS: RANOLAZINE (SR) 500 MG TAB PO (09:05)
[2018-10-14] MEDS: LINAGLIPTIN 5 MG TABLET PO (09:05)
[2018-10-14] MEDS: LOSARTAN 50 MG TAB PO (09:05)
[2018-10-14] MEDS: DUTASTERIDE 0.5 MG CAP PO (09:06)
[2018-10-14] MEDS: METOPROLOL (XL) 25 MG TAB PO (09:06)
[2018-10-14] MEDS: ENOXAPARIN 30 MG/0.3 ML SYG SC (09:07)
[2018-10-14] MEDS: INSULIN ASPART [NOVOLOG] 3 ML PEN SC ×6 (09:07→17:37)
[2018-10-14 23:12] LABS: IMMUNOGLOBULIN D 12 mg/L (<179)
== END 2018-10-14 18:37 | disposition home or self-care (01) | DRG 309 ==
LOC: MS1 10-12 14:29 → 6WM 10-04 01:41 → E/R 21:51
DX: I48.91 Unspecified atrial fibrillation (principal); J21.9 Acute bronchiolitis, unspecified; R07.9 Chest pain, unspecified; E11.9 Type 2 diabetes mellitus without complications; I10 Essential (primary) hypertension; E78.00 Pure hypercholesterolemia, unspecified; Z95.5 Presence of coronary angioplasty implant and graft; R42 Dizziness and giddiness; J47.9 Bronchiectasis, uncomplicated
CPT/HCPCS: 36415; 70450; 71045; 71110; 71250; 78306; 80048; 80053; 80061; 82550; 82553; 82784; 82785; 82962; 83036; 83735; 83880; 84439; 84443; 84484; 85025; 85610; 86480; 86635; 93005; 94640; 94664; 97161; 99217; 99285-25; A9503; G0378